=== PATIENT | female | born 1980 | race Caucasian/White ===

== ENCOUNTER 2023-10-12 21:38 | Emergency (ER) | payer SELFPAY ==
[2023-10-12] MEDS ORDERED: Baclofen 10 MG TAB PO SCH (22:45)
[2023-10-12] MEDS ORDERED: Ketorolac Tromethamine 30 MG (1 mL) VIAL ONE (23:02)
[2023-10-12] MEDS ORDERED: Diazepam 5 MG TAB ONE (23:59)
[2023-10-12] MEDS ORDERED: Acetaminophen 325 MG TAB ONE (23:59)
[2023-10-13] MEDS ORDERED: Dexamethasone 10 MG/ML VIAL ONE (01:08)
== END 2023-10-13 01:27 | disposition home or self-care (01) ==
LOC: ERS 21:38
DX: M62.830 Muscle spasm of back (principal)
CPT/HCPCS: 96372; 99283; J1100; J1885